=== PATIENT | female | born 1950 | race Caucasian/White ===

== ENCOUNTER 2017-11-27 11:48 | Emergency (ER) | payer OTHER, MEDICARE ==
[~2017-11-27] VITALS: Ht 152.4 cm; Wt 90.0 kg
[2017-11-27] MEDS ORDERED: METFORMIN500 M1 PO (12:30)
[2017-11-27] MEDS ORDERED: LIPITOR10 M1 PO (12:32)
[2017-11-27] MEDS ORDERED: ACCUPRIL5 MG PO (12:32)
[2017-11-27 13:03] LABS: HEMATOCRIT 39.7 % (37.0-47.0); IMMATURE GRANULOCYTES 0.2 % (0.0-1.0); MEAN CELL VOLUME 90.4 fL CALC (80.0-100.0); MEAN CORPUSCULAR HGB 29.6 pG CALC (26.0-32.0); MEAN CORPUSCULAR HGB CONC 32.7 g/L CALC (32.0-36.0); NEUT# 3.3 thou/uL (2.00-7.15); RED BLOOD COUNT 4.39 mill/uL (4.20-5.60); RED CELL DISTRI WIDTH 12.7 % (11.5-15.5)
[2017-11-27 13:08] LABS: ALBUMIN 4.3 g/dL (3.2-5.0); ALKALINE PHOSPHATASE 120 u/l (38-126); ANION GAP 17 (6-22 (CALC)); BUN 18 mg/dL (8-23); BUN/CREATININE RATIO 32 (12-20 (CALC)); CARBON DIOXIDE 26 mmol/l (22-30); CHLORIDE 101 mmol/l (95-108); CREATININE 0.6 mg/dL (0.5-1.0); GFR > 60 ML/MIN (>=60 (CALC)); GFR FOR AFR.AMER. > 60 ML/MIN (>=60 (CALC)); POTASSIUM 4.3 mmol/l (3.5-5.1); SGOT/AST 39 u/l (9-36); SGPT/ALT 49 u/l (11-66); SODIUM 140 mmol/l (137-146); TOTAL PROTEIN 7.6 g/dL (6.3-8.2)
[2017-11-27 13:12] VITALS: BP 147/71
[2017-11-27] MEDS ORDERED: AMOXICILLIN500 M2 PO (13:17)
[2017-11-27] MEDS ORDERED: ANTIVERT PO (13:17)
== END 2017-11-27 13:28 | disposition home or self-care (01) | DRG 149 ==
LOC: ED 11:48
PROVIDERS: Emergency Medicine
DX: R42 Dizziness and giddiness (principal); H66.91 Otitis media, unspecified, right ear; E11.9 Type 2 diabetes mellitus without complications; I25.2 Old myocardial infarction

== ENCOUNTER 2017-12-20 15:20 | Observation (INO) | payer OTHER ==
[~2017-12-20] VITALS: Ht 152.4 cm; Wt 90.0 kg
[~2017-12-20 15:20] MED LIST: ACCUPRIL5 MG PO; AMOXICILLIN500 M2 PO; ANTIVERT PO; LIPITOR10 M1 PO; METFORMIN500 M1 PO
--- NOTE | 2017-12-20 15:37 | NUR ---
PT TO ROOM FOR EXAM
--- NOTE | 2017-12-20 16:00 | NUR ---
PT SITTING IN BEDSIDE CHAIR. MODERATE AMOUNT OF FACIAL SWEELING NOTED TO THE LEFT SIDE OF PT'A FACE. PT HAS HAD TOOTH EXTRACTIONS 1 WEEK PRIOR AND HAS BEEN SEEN BY NUMEROUS PHYSICIANS AND PLACED ON CLINDOMYCIN FOR INFECTION. PT REPORTS INCREASE OF SWELLING AT THIS TIME. PT DENIES ANY SOB OR TROUBLE SWALLOWING AND IS TOLERATING PO FLUIDS WITH NO DIFFICULTY.
--- NOTE | 2017-12-20 16:50 | NUR ---
IV INITIATED AND LABS COLLECTED. PT AWARE OF PLAN OF CARE AND WAIT TIME. CALL KERR WITHIN REACH. WILL CONTINUE TO MONITOR.
[2017-12-20 16:59] LABS: HEMATOCRIT 40.2 % (37.0-47.0); HEMOGLOBIN 13.1 g/dl (12.0-16.0); IMMATURE GRANULOCYTES 0.4 % (0.0-1.0); MEAN CORPUSCULAR HGB 29.6 pG CALC (26.0-32.0); MEAN CORPUSCULAR HGB CONC 32.6 g/L CALC (32.0-36.0); NEUT# 5.47 thou/uL (2.00-7.15); RED BLOOD COUNT 4.42 mill/uL (4.20-5.60); RED CELL DISTRI WIDTH 13.1 % (11.5-15.5)
[2017-12-20 17:14] LABS: ALBUMIN 4.3 g/dL (3.2-5.0); ALKALINE PHOSPHATASE 123 u/l (38-126); ANION GAP 12 (6-22 (CALC)); BILIRUBIN, TOTAL 0.7 mg/dL (0.0-1.4); BUN 8 mg/dL (8-23); BUN/CREATININE RATIO 15 (12-20 (CALC)); CARBON DIOXIDE 26 mmol/l (22-30); CHLORIDE 105 mmol/l (95-108); CREATININE 0.6 mg/dL (0.5-1.0); GFR > 60 ML/MIN (>=60 (CALC)); GFR FOR AFR.AMER. > 60 ML/MIN (>=60 (CALC)); SGOT/AST 26 u/l (9-36); SGPT/ALT 43 u/l (11-66); SODIUM 139 mmol/l (137-146); TOTAL PROTEIN 7.7 g/dL (6.3-8.2)
--- NOTE | 2017-12-20 17:43 | NUR ---
PT RETURNED FROM CT SCAN AND IS AWARE OF PLAN OF CARE AND PENDING RESULTS, WILL CONTINUE TO MONITOR.
--- NOTE | 2017-12-20 18:15 | NUR ---
BEDSIDE REPORT GIVEN TO MEGHAN RINCON
--- NOTE | 2017-12-20 18:22 | NUR ---
RECEIVED BEDSIDE REPORT FROM MEGHAN KAY.
[2017-12-20] MEDS ORDERED: NORCO1 TA1 PO (18:50)
[2017-12-20] MEDS ORDERED: TYLENOL 500MG TAB PO (18:50)
[2017-12-20] MEDS ORDERED: CLINDAMYCIN HC150 MG PO (18:51)
[2017-12-20] MEDS ORDERED: MELOXICAM7.5 MG PO (18:52)
[2017-12-20] MEDS ORDERED: ESCITALOPRAM OX10 MG PO (18:52)
[2017-12-20] MEDS ORDERED: METOPROL TAR25 M1 PO (18:53)
[2017-12-20] MEDS ORDERED: BUSPIRONE5 MG PO (18:54)
[2017-12-20] MEDS ORDERED: JARDIANCE25 MG PO (18:55)
[2017-12-20] MEDS ORDERED: ATORVASTATIN CA80 MG PO (18:56)
[2017-12-20] MEDS ORDERED: ZESTRIL/PRINIV2.5 MG PO (18:56)
[2017-12-20] MEDS ORDERED: MELATONIN3 M1 PO (18:57)
[2017-12-20] MEDS ORDERED: ASPIRIN EC325 MG PO (18:58)
[2017-12-20] MEDS ORDERED: LEVEMIR FL100 UNIT/M SC (18:59)
[2017-12-20 19:05] VITALS: BP 128/82
--- NOTE | 2017-12-20 19:17 | NUR ---
REPORT GIVEN TO
--- NOTE | 2017-12-20 19:19 | NUR ---
Admission Note Report Given to: MEGHAN OMER Transported by: X Wheelchair Stretcher Transported with: X Nurse Transporter X Patent IV O2 Voice Engineer
--- NOTE | 2017-12-20 20:00 | NUR ---
PATIENT ADMITTED FROM ER VIA WHEELCHAIR WITH ER STAFF IN ATTENDANCE. AWAKE ALERT AND ORIENTEDX3. PATIENT ADMITTED FOR SWELLING OF LEFT FACE AND CHEEK. PATIENT HAD RECENT DENTAL WORK DONE LAST FRIDAY AND HAS HAD INCREASING LEFT FACE AND CHEEK SWELLING SINCE. PATIENT [facility] OTHER [facility] AND DENTAL OFFICE SINCE. WAS GIVEN ANTIBIOTICS AND PAIN MEDS BUT STATES THAT THE SWELLING IS CONTINUING TO INCREASE AND CAME TO THE [facility] ER TODAY FOR FURTHER TREATMENT. PATIENT ALSO HAS SERVICE DOG WITH HER. STATES THAT SHE HAS NOBODY TO PICK HER UP-[employer] COLLECTOR NOTIFIED. PATIENT WITH IV SITE TO RIGHT AC-SITE APPEARS HEALTHY AND IVF NS HUNG AND INFUSING AT 125CC/HR. PATIENT ORIENTED TO ROOM AND SURROUNDING. INSTRUCTED ON USE OF NURSING CALL LIGHT SYSTEM AND TV REMOTE. SAFETY PRECAUTIONS REVIEWED WITH PATIENT. PROVIDED WITH TURKEY SANDWICH AND DRINK. MEDICATED WITH TYLENOL FOR LOW GRADE TEMP AND MILD PAIN. CALL LIGHT IN REACH. WILL CONT TO MONITOR.
--- NOTE | 2017-12-20 23:45 | NUR ---
PATIENT CALLED AND STATES THAT THE SERVICE DOG NEEDS TO GO OUTSIDE-SECURITY CALLED AND ESCOURTED PATIENT AND DOG OUTSIDE AND THEN RETURNED TO THE FLOOR. TEMP RECHECK-97.9. IV ZOSYN HUNG ORDERED. RESTING IN BED WITH HER DOG. CALL LIGHT IN REACH. WILL CONT TO MONITOR.
--- NOTE | 2017-12-21 01:03 | NUR ---
PATIENT APPEARS SLEEPING AT THIS TIME WITH DOG IN BED WITH PATIENT. NO ACUTE DISTRESS NOTED. CALL LIGHT IN REACH. WILL CONT TO MONITOR.
[2017-12-21 04:35] VITALS: BP 167/91
--- NOTE | 2017-12-21 04:56 | NUR ---
IV SITE INFILTRATED AND IV SITE D/C'ED WITH CATH INTACT. NEW IV SITE STARTED TO LEFT FOREARM-#22 GAUGE WITH GOOD BLOOD RETURN-IVF RESUME ORDERED. PATIENT C/O LEFT FACIAL AND EAR PAIN-MEDICATED WITH TYLENOL 650MG PO FOR 7/10 PAIN SCALE. SERVICE DOG REMAINS WITH PATIENT IN BED. SAFETY PRECAUTIONS REINFORCED. CALL LIGHT IN REACH. WILL CONT TO MONITOR.
[2017-12-21 05:09] LABS: HEMATOCRIT 35.3 % (37.0-47.0); HEMOGLOBIN 11.4 g/dl (12.0-16.0); MEAN CELL VOLUME 91.7 fL CALC (80.0-100.0); MEAN CORPUSCULAR HGB 29.6 pG CALC (26.0-32.0); MEAN CORPUSCULAR HGB CONC 32.3 g/L CALC (32.0-36.0); RED BLOOD COUNT 3.85 mill/uL (4.20-5.60); RED CELL DISTRI WIDTH 13.2 % (11.5-15.5)
[2017-12-21 05:18] LABS: ANION GAP 12 (6-22 (CALC)); BUN 9 mg/dL (8-23); BUN/CREATININE RATIO 14 (12-20 (CALC)); CARBON DIOXIDE 26 mmol/l (22-30); CHLORIDE 105 mmol/l (95-108); CREATININE 0.6 mg/dL (0.5-1.0); GFR > 60 ML/MIN (>=60 (CALC)); GFR FOR AFR.AMER. > 60 ML/MIN (>=60 (CALC)); POTASSIUM 3.8 mmol/l (3.5-5.1); SODIUM 140 mmol/l (137-146)
--- NOTE | 2017-12-21 07:33 | NUR ---
Vancomycin consult Age: 67 years Weight: 90 kg Height: 152.4 cm Gender: Female SCR: 1 mg/dl Dosing weight: 63.3 kg IBW: 45.50 kg CRCL (ml/min): 40.3 Lam (hr-1): 0.038 Half-life (hrs): 18.24 Vd (liters): 63.00 (factor: 0.7 L/kg) Vancomycin 1250 mg Q24H to produce a predicted peak of 32 mcg/ml and a predicted trough of 14 mcg/ml based on (Population-based pharmacokinetic analysis).
--- NOTE | 2017-12-21 08:15 | NUR ---
PT RESTING IN BED, NO SIGNS OF DISTRESS NOTED, RESP EVEN AND UNLABORED. SERVICE DOG AT BEDSIDE. PT A+Ox3, NOTED EDEMA TO L SIDE OF FACE REACHING TO POSTERIOR L EAR. VOICES NO C/O PAIN AT THIS TIME. ASSESSMENT COMPLETED, CALL LIGHT IN REACH,CONTINUE TO MONITOR.
[2017-12-21 08:34] VITALS: BP 142/78
[2017-12-21 08:59] LABS: MAGNESIUM 1.5 mg/dL (1.6-2.3)
[2017-12-21] MEDS ORDERED: CLEOCIN300 MG PO (10:37)
[2017-12-21 11:04] VITALS: BP 142/78
--- NOTE | 2017-12-21 11:36 | NUR ---
PT SITTING IN BED WATCHING TV, NO SIGNS OF DISTRESS NOTED, RESP EVEN AND UNLABORED. DISCUSSED POC, MAGNESIUM IV ORDERED, PT IN AGREEMENT FOR ADMINISTRATION. VOICES NO NEEDS OR COMPLAINTS AT THIS TIME, CALL LIGHT IN REACH,CONTINUE TO MONITOR.
--- NOTE | 2017-12-21 12:38 | NUR ---
Discharge instructions given. Patient verbalizes understanding of same. Discharged in stable condition via Ambulatory to Home with *Other. All belongings sent with pt.
== END 2017-12-21 12:39 | disposition home or self-care (01) | DRG 603 ==
LOC: ED 15:20 → ED-I 18:19 → ED 18:31 → MS2 18:32
PROVIDERS: Emergency Medicine; Nurse Practitioner Family; ADMIT Internal Medicine; ATTEND Internal Medicine
DX: L03.211 Cellulitis of face (principal); K04.7 Periapical abscess without sinus; E83.42 Hypomagnesemia; E11.9 Type 2 diabetes mellitus without complications; I10 Essential (primary) hypertension; I25.10 Atherosclerotic heart disease of native coronary artery without angina pectoris; I25.2 Old myocardial infarction; K08.409 Partial loss of teeth, unspecified cause, unspecified class; Z87.891 Personal history of nicotine dependence; Z95.1 Presence of aortocoronary bypass graft; Z79.4 Long term (current) use of insulin
CPT/HCPCS: J3370; Q9967

== ENCOUNTER 2017-12-24 13:30 | Emergency (ER) | payer OTHER ==
[~2017-12-24] VITALS: Ht 152.4 cm; Wt 90.0 kg
[~2017-12-24 13:30] MED LIST changes: +ASPIRIN EC325 MG PO; +ATORVASTATIN CA80 MG PO; +BUSPIRONE5 MG PO; +CLEOCIN300 MG PO; +CLINDAMYCIN HC150 MG PO; +ESCITALOPRAM OX10 MG PO; +JARDIANCE25 MG PO; +LEVEMIR FL100 UNIT/M SC; +MELATONIN3 M1 PO; +MELOXICAM7.5 MG PO; +METOPROL TAR25 M1 PO; +NORCO1 TA1 PO; +TYLENOL 500MG TAB PO; +ZESTRIL/PRINIV2.5 MG PO
[2017-12-24 14:31] LABS: HEMATOCRIT 40.7 % (37.0-47.0); HEMOGLOBIN 13.3 g/dl (12.0-16.0); IMMATURE GRANULOCYTES 0.3 % (0.0-1.0); MEAN CELL VOLUME 90.4 fL CALC (80.0-100.0); MEAN CORPUSCULAR HGB 29.6 pG CALC (26.0-32.0); MEAN CORPUSCULAR HGB CONC 32.7 g/L CALC (32.0-36.0); NEUT# 4.5 thou/uL (2.00-7.15); RED BLOOD COUNT 4.5 mill/uL (4.20-5.60); RED CELL DISTRI WIDTH 13.4 % (11.5-15.5)
[2017-12-24 19:56] VITALS: BP 132/79
== END 2017-12-24 19:55 | disposition short-term general hospital (02) | DRG 603 ==
LOC: ED 13:30
PROVIDERS: Emergency Medicine
DX: L02.01 Cutaneous abscess of face (principal); M19.90 Unspecified osteoarthritis, unspecified site; E11.9 Type 2 diabetes mellitus without complications; I10 Essential (primary) hypertension; I25.2 Old myocardial infarction; Z95.1 Presence of aortocoronary bypass graft